=== PATIENT | male | born 1950 | race Caucasian/White ===

== ENCOUNTER 2020-07-20 12:26 | Emergency (ER) | payer SELFPAY ==
[~2020-07-20] VITALS: Ht 177.8 cm; Wt 136.1 kg
[2020-07-20] MEDS ORDERED: CALCIUM CHLOR(10%) 100MG/ML 10ML SYRINGE IV ONE (12:27)
[2020-07-20] MEDS ORDERED: SODIUM BICARBONATE 8.4% INJ 50ML SYRINGE IV ONE (12:27)
[2020-07-20] MEDS ORDERED: EPINEPHrine HCL 1 MG/10 ML SYRG IV ONE (12:27)
[2020-07-20] MEDS ORDERED: AMIODARONE HCL (50 MG/ ML) 3 ML VIAL IV ONE (12:27)
== END 2020-07-20 13:28 ==
LOC: EDBD 12:26 → ER 12:26
DX: I46.9 Cardiac arrest, cause unspecified (principal); J96.21 Acute and chronic respiratory failure with hypoxia
CPT/HCPCS: 31500; 92950; 99285; J0171; J0282